=== PATIENT | female | born 1930 | race Caucasian/White ===

== ENCOUNTER 2020-07-21 17:16 | Inpatient (IN) | payer MEDICARE, OTHER ==
[~2020-07-21] VITALS: Ht 152.4 cm; Wt 60.4 kg
--- NOTE | ~2020-07-21 | CON ---
[address] [address] CONSULTATION Name: HUNTERBESTPABLO Room: [address] IN M.R.#: [id number] Admission: 07/21/20 Attend Phys: Aden Terrazas MD Discharge: Date of : [birth year] Report #: [id number] THIS REPORT FOR: cc: Mateo Gant MD, Kevin R. MD Khosla, Parveen K. MD ~ DOC #: [id number] Pardeep Mckinney MD DATE OF CONSULTATION: 07/22/2020 HISTORY OF PRESENT ILLNESS: An 89-year-old female patient who was evaluated by me for dementia. The patient does not provide any reliable history because her memory is very poor. I was able to reach the patient's durable power of criminal defense attorney and she tells me this patient has a longstanding history of dementia. She gives a history that she was evaluated at [facility], but they did not do any imaging study of the brain. I do not have any records. They also thought she has some Parkinson disease because of her tremor. She had multiple falls. Her sleep patterns are that she sleeps a lot. REVIEW OF SYSTEMS: Positive for high cholesterol, hysterectomy, cholecystectomy, dementia, Parkinson disease. It is very difficult to tell about the patient's rest of the conditions because of her dementia. She is not complaining of any eye, ENT, cardiac, respiratory, GI, , musculoskeletal, constitutional, dermatological, hematological, psychiatric, throat, allergic symptoms associated with present symptomatology. PAST MEDICAL HISTORY: Positive for dementia. FAMILY HISTORY: Negative for early age, dementia. SOCIAL HISTORY: She was never a heavy drinker. PHYSICAL EXAMINATION: The patient's examination indicate that she is alert, responsive. She does not know what month it is. She does not know what year it is. She does not know what hospital she is in. Cranial nerve examination II-XII was attempted. It is limited, especially visual field examination because of the patient's limited ability to understand the instructions because of her dementia. She moves all 4 extremities. Strength and sensation is almost impossible because she is unable to cooperate. Tone looks symmetrical. She is moderately built individual. She does not have any dysmorphic features of eyes, ears and face. Thyroid and carotids looks unremarkable. Cardiac examination is unremarkable. Pulses are difficult to feel. Respiratory examination is unremarkable. Blood pressure is 188/63, pulse is 60, temperature is 98.5. LABORATORY DATA: White count is 7.6. She did have a head CT, which showed a [facility] [address] [place] [address] CONSULTATION Name: PABLO NEWTON Room: [address] IN [facility]#: [id number] Admission: 07/21/20 Attend Phys: Aden Terrazas MD Discharge: Date of : [birth year] Report #: [id number] question of stroke. Cervical spine was positive for degenerative diseases, but otherwise was unremarkable. IMPRESSION: This patient has advanced Alzheimer dementia. It is possible she has a multi-infarct dementia if the CT finding is real. We will do an MRI to see if it is really a stroke and if there is any multiple strokes visible on MRI. If she has multiple multiinfarct dementia, we will initiate secondary stroke prophylaxis. Otherwise, I will check the TSH, vitamin B12 level in this patient and start her on some dementia medication, but she has such an advanced dementia that it is very desirable to keep this patient in a shelter as planned. She does have some Parkinson disease and I think it may be desirable to try her on some Parkinson medication, especially if no other etiology for the patient's fall is demonstrated. Thank you very much for this referral and if you have any questions, please feel free to contact me. Pardeep Mckinney MD PK/MAX By: 1357 15Pardeep Mckinney MD /nt
[~2020-07-21 17:16] MED LIST: LIPITOR10 MG PO; LYRICA 50 MG50 MG PO; PREDNISONE 10 M10 MG PO; VOLTAREN GEL 1100 G2 TOP; ZESTORETIC 20-1 EACH PO
[2020-07-21 17:26] VITALS: BP 155/59
[2020-07-21] MEDS ORDERED: LISINOPRIL20 MG PO (17:33)
[2020-07-21] MEDS ORDERED: ASA81BEC PO (17:34)
[2020-07-21] MEDS ORDERED: LEXAPRO 10 MG T10 M1 PO (17:34)
[2020-07-21] MEDS ORDERED: VITAMIN B12-FO1 EAC1 PO (17:34)
[2020-07-21] MEDS ORDERED: PRESERVISION A1 EAC2 PO (17:35)
[2020-07-21] MEDS ORDERED: CRANBERRY 6,001 EACH PO (17:35)
[2020-07-21] MEDS ORDERED: VITAMIN D325 MC4 PO (17:35)
[2020-07-21 18:04] LABS: ABSOLUTE BASOPHILS 0.1 thou/uL (0.0-0.2); ABSOLUTE EOSINOPHILS 0.2 thou/uL (0.0-0.7); ABSOLUTE LYMPHOCYTES 1.6 thou/uL (0.8-5.3); ABSOLUTE MONOCYTES 0.7 thou/uL (0.0-1.2); ABSOLUTE NEUTROPHILS 5.1 thou/uL (1.6-8.1); BASOPHILS 0.9 %; HEMOGLOBIN 13.3 gm/dL (12.0-15.0); LYMPHOCYTES 20.7 %; MCH 32.6 pg (26.0-34.0); MCHC 33.1 g/dL (28.0-37.0); MCV 98.5 fL (80.0-100.0); MONOCYTES 9.5 %; MPV 9.1 fl. (7.2-11.1); NUCLEATED RBCS 0 /100WBC; PLATELET COUNT* 312 thou/uL (150-400); POLYS 66.9 %; RBC 4.06 mil/uL (4.20-5.00); RDW-CV 13.1 % (10.5-14.5); WBC 7.6 thou/uL (4.0-11.0)
[2020-07-21 18:13] LABS: CALCIUM 9.5 mg/dL (8.5-10.1); CREATININE 0.9 mg/dL (0.6-1.3); POTASSIUM 3.5 mmol/L (3.5-5.1)
[2020-07-21 18:27] LABS: ALBUMIN 3.1 g/dL (3.4-5.0); TOTAL BILIRUBIN 0.4 mg/dL (<0.1-1.0); TOTAL PROTEIN 7.6 g/dL (6.4-8.2)
[2020-07-21 19:53] LABS: URINE BILIRUBIN NEGATIVE (Negative); URINE BLOOD TRACE (Negative); URINE CLARITY SL CLOUDY; URINE COLOR YELLOW; URINE GLUCOSE-RANDOM NEGATIVE (Negative); URINE KETONES NEGATIVE (Negative); URINE LEUKOCYTES-REFLEX 1+ (Negative); URINE NITRITE-REFLEX NEGATIVE (Negative); URINE PROTEIN 1+ (Negative); URINE SPECIFIC GRAVITY >= 1.030 (1.005-1.030)
[2020-07-21 20:01] LABS: BACTERIA-REFLEX >30 Many /HPF (None Seen); CASTS None Seen /LPF (None Seen); MUCUS None Seen strn/LPF (None Seen); SQUAMOUS 4-10 Moderate /LPF (0-3); URINE RBC 0-2 Rare /HPF (0-2); URINE WBC-REFLEX 6-15 Few /HPF (0-5)
[2020-07-21 20:02] LABS: CRYSTALS None Seen /LPF (None Seen)
[2020-07-21 21:29] VITALS: BP 175/62
[2020-07-22 00:30] VITALS: BP 136/58
[2020-07-22 04:00] VITALS: BP 160/91
--- NOTE | 2020-07-22 07:05 | NUR ---
CHANGE OF SHIFT BEDSIDE REPORT GIVEN PATIENT SEEN AT BEDSIDE, IN BED ASLEEP ASSUMED PATIENT CARE
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
[2020-07-22 08:00] VITALS: BP 155/57
--- NOTE | 2020-07-22 09:52 | EKG ---
[place] [address] ELECTROCARDIOGRAM REPORT Name: PABLO NEWTON Room: [address] ADM IN .R.#: [id number] Admission: 07/21/20 Attend Phys: Aden Terrazas, Discharge: Date of : [birth year] Date of Service: 07/21/20 175 Report #: [id number] THIS REPORT FOR: //name// [facility] ED Test Date: 2020-07-21 Test Time: 17:50:39 Pat Name: PABLO HRARISONBEST Department: Room: [facility] Gender: F Internal Communications Specialist: CD : 1930 Requested By: Willam Mejia Order Number: [id number] MD: Russell Nur Measurements Intervals [place] Rate: 56 P: 0 WI: 75 QRS: 12 QRSD: 112 T: 46 QT: 433 QTc: 418 Interpretive Statements Sinus rhythm Short WI interval No previous ECG available for comparison Electronically Signed On 07-22-2020 9:52:30 CDT by Russell Nur [email or web address] <ELECTRONICALLY SIGNED> By: Russell Nur MD, [facility] 07/22/20 0952 1750 1750 Russell Nur MD, [facility] /EPI
[2020-07-22 12:21] VITALS: BP 188/63
--- NOTE | 2020-07-22 14:01 | NUR ---
Admitted from ER Flash and flakito brought by car Mental Status upon admission Alert & Oriented x 1-name Confused-unable to have conversation with others Living Arrangements: Stairs Elevator Home Lives with: or they live with patient Lives with flash-Iris Support system: Name Phone number Relationship Iris Romano [phone] grndtr Rodney Nettles [phone] flakito Can patient return to prior living arrangements? No-freq falls, can't be left alone, and heavier care than flash feels she can handle Notes: Activities of daily living: Dependent Bathing/Dressing-requires 1:1 assistance family prepares meals and has to encourage pt to eat Assistive device: No Prior resource use: None Senior Blue Book and List SNF/LTC facilities given to grandverenice and grandson, spoke to them in person in patients room Family is touring facilities today. Will notify CM of decision for facility tomorrow Case and plan of care reviewed with MD. Will continue plan of care and follow for discharge planning needs identified as SNF/LTC. PT/OT order to eval and treat.
[2020-07-22 16:28] VITALS: BP 210/81
--- NOTE | 2020-07-22 16:39 | NUR ---
WOUND NURSE: PATIENT SEEN TO ADDRESS WOUND ON LEFT HIP WHICH MEASURES 14.0 X 7.0 X 0.1 CM. PRESENTS WITH FULL THICKNESS TISSUE LOSS, CONTAINS THIN LAYER OF FIRMLY ADHERENT YELLOW SLOUGH OVER 80 TO 90% OF THE WOUND BED. THERE IS A MODERATE AMOUNT OF YELLOW DRAINAGE. NO PERIWOUND REDNESS, WARMTH, OR INDURATION. CLEANSED WITH SOAP AND WATER, RINSE, PAT DRY. APPLIED SKIN PREP TO INTACT PERIWOUND TISSUE TO THE WOUND BED. APPLIED OPTIFOAM GENTLE AG TO WOUND, THEN SECURED WITH SURESITE TRANSPARENT DRESSING. PATIENT IS CONFUSED AND NON TEACHEABLE.
[2020-07-22 20:00] VITALS: BP 181/76
--- NOTE | 2020-07-22 20:00 | NUR ---
RECEIVED REPORT AND ASSUMED CARE OF PT, ASSESSMENT COMPLETED. PT CONFUSED BUT PLEASANT AND COOPERATIVE. ASSISTED TO BSC, VOIDING WELL. TELEMETRY ON SHOWING SR. WILL CONT TO MONITOR AND ASSIST NEEDED.
[2020-07-23] VITALS: BP 173/86
[2020-07-23 04:00] VITALS: BP 156/60
--- NOTE | 2020-07-23 05:50 | NUR ---
SLEPT WELL TONIGHT. ASSISTED TO BSC, VOIDING WELL. NO CHANGE IN ASSESSMENT. TELEMETRY CONT TO SHOW SR. HS GOALS OF REST AND SAFETY ACHIEVED. HOURLY ROUNDING OBSERVED.
[2020-07-23 08:52] VITALS: BP 167/67
[2020-07-23 11:30] VITALS: BP 145/55
--- NOTE | 2020-07-23 12:37 | NUR ---
CM S/W PT'S GRANDDTR, SARATH, WHO HAS INDICATED SHE WANTS TO TRY IGNITE/SMV, CM FAXED REFERRAL [phone].
--- NOTE | 2020-07-23 13:14 | NUR ---
ASSESS PT WITH DR. MAYO AND DR. CHAN. INSTRUCTED OK TO DELAY HEAD MRI TILL AM. DPOA WILL COME IN THIS EVENING HELP FILL OUT MRI CHECK LIST. WILL CONTINUE TO ASSESS.
[2020-07-23 16:00] VITALS: BP 197/84
--- NOTE | 2020-07-23 16:01 | 2DMMODE ---
[place] [address] 2 D/M-MODE ECHOCARDIOGRAM Name: PABLO NEWTON Room: [address] IN [facility].#: [id number] Admission: 07/21/20 Attend Phys: Aden Terrazas, Discharge: Date of : [birth year] Date of Service: 07/23/20 1600 Report #: [id number] THIS REPORT FOR: cc: Mateo Gant MD, Kevin R. MD Liston, Michael J. MD [facility] ~ APPROVED REPORT Study performed: 07/23/2020 14:03:46 EXAM: Comprehensive 2D, Doppler, and color-flow Echocardiogram Patient Location: In-Patient Room #: [facility] Status: routine BSA: 1.57 HR: 63 bpm BP: 145/55 mmHg Rhythm: NSR Other Information Study Quality: Good Indications CVA/TIA Echo Enhancing Agent Indication: Rule out Shunt Agent(s) / Amount(s) Used: Agitated Saline 10 cc 2D Dimensions IVSd: 11.51 (7-11mm) LVOT Diam: 18.41 (18-24mm) LVDd: 38.60 mm PWd: 9.57 (7-11mm) Ascending Ao: 30.32 (22-36mm) LVDs: 20.67 (25-40mm) Aortic Root: 29.25 mm Volumes Left Atrial Volume (Systole) LA ESV Index: 30.80 mL/m2 Aortic Valve AoV Peak Ab.: 1.53 m/s AO Peak Gr.: 9.41 mmHg LVOT Max P.65 mmHg AO Mean Gr.: 5.21 mmHg LVOT Mean P.29 [place] [address] 2 D/M-MODE ECHOCARDIOGRAM Name: PABLO NEWTON Room: [address] IN .R.#: [id number] Admission: 07/21/20 Attend Phys: Aden Terrazas, Discharge: Date of : [birth year] Date of Service: 07/23/20 1600 Report #: [id number] LVOT Max V: 1.29 m/s AO V2 VTI: 36.80 cm LVOT Mean V: 0.84 m/s SHARON (VTI): 2.28 cm2 LVOT V1 VTI: 31.48 cm Mitral Valve E/A Ratio: 0.66 MV Decel. Time: 306.65 ms MV E Max Ab.: 0.79 m/s MV PHT: 88.93 ms MVA (PHT): 2.47 cm2 TDI E/Lateral E': 9.88 E/Medial E': 11.29 Medial E' Ab.: 0.07 m/s Lateral E' Ab.: 0.08 m/s Pulmonary Valve PV Peak Ab.: 1.09 m/s PV Peak Gr.: 4.76 mmHg Left Ventricle The left ventricle is normal size. There is normal LV segmental wall motion. There is normal left ventricular wall thickness. Left ventricular systolic function is normal. LVEF is 65-70%. Grade I - abnormal relaxation pattern. Right Ventricle The right ventricle is normal size. The right ventricular systolic function is normal. Atria The left atrium size is normal. The interatrial septum is intact with no evidence for an atrial septal defect. The right atrium size is normal. Aortic Valve Mild aortic valve sclerosis. Trace aortic regurgitation. There is no aortic valvular stenosis. Mitral Valve The mitral valve is normal in structure. Trace mitral regurgitation. No evidence of mitral valve stenosis. Tricuspid Valve The tricuspid valve is normal in structure. Trace tricuspid regurgitation. Unable [place] [address] 2 D/M-MODE ECHOCARDIOGRAM Name: PABLO NEWTON Room: [address]#: [id number] Admission: 07/21/20 Attend Phys: Aden Terrazas, Discharge: Date of : [birth year] Date of Service: 07/23/20 1600 Report #: [id number] Pulmonic Valve The pulmonary valve is normal in structure. Mild pulmonic regurgitation. Great Vessels The aortic root is normal in size. IVC is normal in size and collapses >50% with inspiration. Pericardium There is no pericardial effusion. <Conclusion> The left ventricle is normal size. There is normal left ventricular wall thickness. Left ventricular systolic function is normal. LVEF is 65-70%. Grade I - abnormal relaxation pattern. Mild aortic valve sclerosis. Trace aortic regurgitation. Trace mitral regurgitation. Trace tricuspid regurgitation. Unable to assess PA pressure. IVC is normal in size and collapses >50% with inspiration. The interatrial septum is intact with no evidence for an atrial septal defect. <ELECTRONICALLY SIGNED> By: Zack Goldman MD, FACC 07/23/201599 99 99 Zack Goldman MD, FACC /INF
[2020-07-23 20:00] VITALS: BP 171/66
[2020-07-24] VITALS: BP 118/49
[2020-07-24 04:00] VITALS: BP 151/54
[2020-07-24 04:16] LABS: ABSOLUTE BASOPHILS 0.1 thou/uL (0.0-0.2); ABSOLUTE EOSINOPHILS 0.4 thou/uL (0.0-0.7); ABSOLUTE LYMPHOCYTES 1.9 thou/uL (0.8-5.3); ABSOLUTE MONOCYTES 0.6 thou/uL (0.0-1.2); ABSOLUTE NEUTROPHILS 4.4 thou/uL (1.6-8.1); EOSINOPHILS 5.1 %; HEMATOCRIT 35.3 % (37.0-47.0); HEMOGLOBIN 12.1 gm/dL (12.0-15.0); LYMPHOCYTES 25.7 %; MCHC 34.2 g/dL (28.0-37.0); MCV 96.4 fL (80.0-100.0); MONOCYTES 8.6 %; MPV 8.8 fl. (7.2-11.1); NUCLEATED RBCS 0 /100WBC; PLATELET COUNT* 292 thou/uL (150-400); POLYS 59.6 %; RBC 3.67 mil/uL (4.20-5.00); RDW-CV 12.8 % (10.5-14.5); WBC 7.4 thou/uL (4.0-11.0)
[2020-07-24 04:35] LABS: ALBUMIN 2.7 g/dL (3.4-5.0); ALKALINE PHOSPHATASE 97 U/L (46-116); ANION GAP 8 mmol/L (7-16); BUN 14 mg/dL (7-18); CALCIUM 8.7 mg/dL (8.5-10.1); CHLORIDE 107 mmol/L (98-107); CO2 27 mmol/L (21-32); CREATININE 0.8 mg/dL (0.6-1.3); GLUCOSE 81 mg/dL (70-99); SGOT 14 U/L (15-37); SGPT 30 U/L (30-65); SODIUM 142 mmol/L (136-145); TOTAL BILIRUBIN 0.5 mg/dL (<0.1-1.0); TOTAL PROTEIN 6.3 g/dL (6.4-8.2)
[2020-07-24 04:49] LABS: CHOLESTEROL 163 mg/dL (<200); HDL CHOLESTEROL 42 mg/dL (>40); LDL CHOLESTEROL 107 mg/dL (<100); TC:HDL 3.9 Ratio (Not establshd); TRIGLYCERIDE 72 mg/dL (<150); VLDL 14 mg/dL (<40)
[2020-07-24 04:51] LABS: SERUM ASSESSMENT Clear
[2020-07-24 08:00] VITALS: BP 150/57
[2020-07-24] MEDS ORDERED: LIPITOR 20 MG T20 M1 PO (10:44)
[2020-07-24] MEDS ORDERED: ASA81BEC PO (10:45)
[2020-07-24 11:45] VITALS: BP 167/63
[2020-07-24] MEDS ORDERED: CIPRO500 M1 PO (14:57)
[2020-07-24] MEDS ORDERED: PLAVIX 75 MG TA75 MG PO (15:47)
--- NOTE | 2020-07-24 16:22 | NUR ---
PLAN OF CARE: PLAN FOR PT TO D/C TO SNF AT [facility] TODAY. CM SPOKE TO MICHI AND SHE INFORMS THAT PT HAS BEEN ACCEPTED AND TRANSPORTATION WILL ARRIVE AT [phone]. CM SPOKE TO THE PT AND HER GRANDDAUGHTER TO DISCUSS PT'S D/C TO SNF TODAY. ALL IN AGREEMENT. JODI PROVIDED THE RN IN-CHARGE OF THE PT NUMBER TO CALL REPORT. D/C ORDERS FAXED. CM WILL REMAIN AVAILABLE TO ASSIST AND FOLLOW NEEDED. [facility] PHONE: [phone] FAX: [phone]
--- NOTE | 2020-07-24 16:35 | NUR ---
RECEIVED REPORT. ASSUMED CARE OF PT AROUND 0730. AM ASSESSMENT AND VITALS COMPLETED CHARTED. MEDS PER EMAR. PROPERTY ANALYST IN PLACE. DISCAHRGE ORDERS RECEIVED. DISCHARGE COMPLETED CHARTED. IV AND PROPERTY ANALYST REMOVED. DRESSING CHANGED AND DC PIC TAKEN. REPORT CALLED TO [facility] AND SPOKE TO SHAYLA. PT LEFT IN WC WITH TRANSPORTER AT 1635.
--- NOTE | 2020-07-24 17:36 | NUR ---
PT. DISCHARGED PRIOR TO O.T. EVAL. PLEASE ORDER FURTHER O.T. SERVICES IF NEEDED.
[2020-07-25 02:06] LABS: GLYCOHEMOGLOBIN (HGB A1C) 5.1 % (4.8-5.6)
== END 2020-07-24 16:35 | DRG 64 ==
LOC: M.ERS 17:16 → M.2W 19:11 → M.TBA-ER 19:11 → M.2W 21:11
PROVIDERS: Internal Medicine; Physician Assistant; ADMIT Internal Medicine; ATTEND Internal Medicine
DX: I63.89 Other cerebral infarction (principal); G93.41 Metabolic encephalopathy; N39.0 Urinary tract infection, site not specified; E78.5 Hyperlipidemia, unspecified; I10 Essential (primary) hypertension; E78.00 Pure hypercholesterolemia, unspecified; G30.9 Alzheimer's disease, unspecified; S31.829A Unspecified open wound of left buttock, initial encounter; F02.80 Dementia in other diseases classified elsewhere, unspecified severity, without behavioral disturbance, psychotic disturbance, mood disturbance, and anxiety; X58.XXXA Exposure to other specified factors, initial encounter; Z20.822 Contact with and (suspected) exposure to COVID-19; Y93.89 Activity, other specified; Z90.49 Acquired absence of other specified parts of digestive tract; Z90.710 Acquired absence of both cervix and uterus; Y92.89 Other specified places as the place of occurrence of the external cause; Z79.899 Other long term (current) drug therapy; Y99.8 Other external cause status; Z88.2 Allergy status to sulfonamides